=== PATIENT | female | born 1995 | race African-American/Black ===

== ENCOUNTER 2016-11-13 01:34 | Emergency (ER) | payer MEDICAID, OTHER ==
[~2016-11-13] VITALS: Ht 149.9 cm; Wt 87.0 kg
[2016-11-13] MEDS ORDERED: DEXAMETHASONE 10MG/ML 1ML VIAL IM ONE (02:30)
[2016-11-13] MEDS ORDERED: DIPHENHYDRAMINE 50MG CAPSULE PO ONE (02:30)
[2016-11-13] MEDS ORDERED: FAMOTIDINE 20MG TABLET PO ONE (02:30)
[2016-11-13 03:08] VITALS: BP 138/79
== END 2016-11-13 03:10 | disposition home or self-care (01) ==
LOC: ER 01:34
DX: T78.40XA Allergy, unspecified, initial encounter (principal); F10.20 Alcohol dependence, uncomplicated
CPT/HCPCS: 81025; 96372; 99283; J1100; Z7610; Q0163